=== PATIENT | female | born 2000 | race Caucasian/White ===

== ENCOUNTER 2021-06-19 13:14 | Inpatient (IN) | payer BC, SELFPAY ==
[~2021-06-19] VITALS: Ht 170.2 cm; Wt 78.9 kg
[2021-06-19] MEDS ORDERED: LACTATED RINGERS 1,000 ML IV SCH (13:30)
[2021-06-19 14:19] LABS: BASOPHILS % (AUTO) 0.6 % (0.0-2.0); EOSINOPHILS # (AUTO) 0.1 K/uL (0-0.4); EOSINOPHILS % (AUTO) 0.9 % (0.0-4.0); HEMATOCRIT 34.1 % (36-48); HEMOGLOBIN 11.4 g/dL (12.0-16.0); LYMPHOCYTES # (AUTO) 1.1 K/uL (2.5-16.5); LYMPHOCYTES % (AUTO) 13.5 % (20.5-51.1); MEAN CORPUSCULAR HEMOGLOBIN 30 pg (27-31); MEAN CORPUSCULAR HGB CONC 34 g/dL (33-37); MEAN CORPUSCULAR VOLUME 89.9 fL (80-94); MONOCYTES # (AUTO) 0.7 K/uL (0.8-1.0); MONOCYTES % (AUTO) 8.5 % (1.7-9.3); NEUTROPHILS # (AUTO) 6.5 K/uL (1.8-7.7); NEUTROPHILS % (AUTO) 76.5 % (42.2-75.2); PLATELET COUNT (AUTO) 241 K/uL (140-450); RED BLOOD CELL COUNT(AUTO) 3.79 MIL/uL (4.20-5.40); RED CELL DISTRIBUTION WIDTH 16.6 % (11.6-13.7); WHITE BLOOD COUNT (AUTO) 8.5 K/uL (4.8-10.8)
[2021-06-19 14:36] LABS: APPEARANCE,URINE CLEAR (CLEAR); BILIRUBIN,URINE NEGATIVE (NEGATIVE); BLOOD, URINE NEGATIVE (NEGATIVE); COLOR,URINE YELLOW (YELLOW); LEUKOCYTE ESTERASE ,URINE NEGATIVE (NEGATIVE); NITRITE, URINE NEGATIVE (NEGATIVE); PH,URINE 6.5 (5.0-9.0); UGLUCOSE NEGATIVE (NEGATIVE)
[2021-06-19 14:59] LABS: ALBUMIN 2.7 g/dL (3.4-5.0); ANION GAP 15.3 (8-16); CREATININE 0.6 mg/dL (0.6-1.3); POTASSIUM 4.3 mmol/L (3.5-5.1); TOTAL BILIRUBIN 0.3 mg/dL (0.0-1.0)
[2021-06-19] MEDS ORDERED: MORPHINE PRES FREE 10 MG/10 ML AMP IV ONE (14:59)
[2021-06-19] MEDS ORDERED: ePHEDrine 50 MG/ML VIAL ONE (15:00)
[2021-06-19] MEDS ORDERED: OXYTOCIN 10 UNITS/ML VIAL ONE (15:00)
[2021-06-19] MEDS ORDERED: PHENYLEPHRINE 10 MG/ML VIAL ONE (15:00)
[2021-06-19] MEDS ORDERED: DEXAMETHASONE 4 MG/ML VIAL ONE (15:00)
[2021-06-19] MEDS ORDERED: fentaNYL citrate 0.05 MG/ML VIAL ONE (15:50)
[2021-06-19] MEDS: OXYTOCIN 20 UNITS/LR PREMIX 1,000 ML IV ONE ×2 (16:51→17:20)
[2021-06-19] MEDS ORDERED: BENZOCAINE/MENTHOL 20%-0.5% 60 GM CAN TP PRN (17:00)
[2021-06-19] MEDS ORDERED: METHYLERGONOVINE 0.2 MG TAB PO PRN (17:00)
[2021-06-19] MEDS ORDERED: METHYLERGONOVINE 0.2 MG/ML AMP IM PRN (17:00)
[2021-06-19] MEDS ORDERED: OXYTOCIN 10 UNITS/ML VIAL IM PRN (17:00)
[2021-06-19] MEDS ORDERED: MEASLES, MUMPS, AND RUBELLA 1 VIAL SQVAC ONE (17:00)
[2021-06-19] MEDS ORDERED: MEASLES, MUMPS, AND RUBELLA 1 VIAL SQVAC PRN (17:15)
[2021-06-19] MEDS ORDERED: ONDANSETRON 4 MG/2 ML VIAL IVP PRN (19:45)
[2021-06-19] MEDS ORDERED: NALOXONE 0.4 MG/ML VIAL IVP PRN ×2 (19:45)
[2021-06-19] MEDS ORDERED: HYDROmorphone 1 MG/ML AMP IVP PRN (19:50)
[2021-06-19] MEDS ORDERED: KETOROLAC 30 MG/ML VIAL IVP PRN (19:50)
[2021-06-19] MEDS ORDERED: OXYTOCIN 20 UNITS in LACTATED RINGERS 1,000 ML IV ONE (20:00)
[2021-06-19] MEDS ORDERED: AMMONIA AROMATIC 1 INHL INH ONE (22:34)
[2021-06-19] MEDS ORDERED: OXYTOCIN 20 UNITS/LR PREMIX 1,000 ML IV ONE (23:29)
[2021-06-20 06:35] LABS: HEMATOCRIT 33.3 % (36-48); HEMOGLOBIN 11.2 g/dL (12.0-16.0)
[2021-06-20] MEDS ORDERED: OXYTOCIN 20 UNITS/LR PREMIX 1,000 ML IV ONE (09:15)
[2021-06-20] MEDS ORDERED: bisacodyL 5 MG TABEC PO PRN (10:20)
[2021-06-20] MEDS: SIMETHICONE 80 MG TAB.CHEW PO PRN ×2 (13:20→18:16)
[2021-06-20] MEDS: IBUPROFEN 800 MG TAB PO PRN (16:52)
[2021-06-21] MEDS: IBUPROFEN 800 MG TAB PO PRN ×3 (01:46→19:38)
[2021-06-21] MEDS ORDERED: CAMERA MC ONE (04:01)
[2021-06-21] MEDS: SIMETHICONE 80 MG TAB.CHEW PO PRN (09:31)
[2021-06-21] MEDS ORDERED: oxyCODONE/APAP 5/325 MG 1 TAB TAB PO PRN ×2 (20:40)
[2021-06-22] MEDS ORDERED: CAMERA MC ONE (01:00)
[2021-06-22] MEDS: IBUPROFEN 800 MG TAB PO PRN (05:13)
[2021-06-22 17:33] LABS: APPEARANCE,URINE CLEAR (CLEAR); BILIRUBIN,URINE NEGATIVE (NEGATIVE); BLOOD, URINE NEGATIVE (NEGATIVE); COLOR,URINE YELLOW (YELLOW); LEUKOCYTE ESTERASE ,URINE NEGATIVE (NEGATIVE); NITRITE, URINE NEGATIVE (NEGATIVE); UGLUCOSE NEGATIVE (NEGATIVE)
== END 2021-06-22 17:30 | disposition home or self-care (01) | DRG 788 ==
LOC: MLD 13:14 → MFCC 17:25
PROVIDERS: ADMIT Obstetrics & Gynecology; ATTEND Obstetrics & Gynecology
PROC: 10D00Z1 Extraction of Products of Conception, Low, Open Approach (ICD-10-PCS; principal; 2021-06-19 15:00)
DX: O36.63X0 Maternal care for excessive fetal growth, third trimester, not applicable or unspecified (principal); O48.0 Post-term pregnancy; Z20.822 Contact with and (suspected) exposure to COVID-19; Z3A.40 40 weeks gestation of pregnancy; Z37.0 Single live birth
CPT/HCPCS: 36415; 51702; 80053; 81003; 85018; 85025; 86592; 86886; 86900; 86901; J0690; J1100; J1885; J2270; J2370; J2590; J3010; J7060; J7120; Q0163